=== PATIENT | male | born 1965 | race Caucasian/White ===

== ENCOUNTER 2018-05-08 13:08 | Outpatient (CLI) | payer OTHER, SELFPAY ==
--- NOTE | 2018-05-08 11:57 | DI.RAD_ITS ---
SYMPTOM/DIAGNOSIS: LT SIDED BACK PAIN, TOE NUMBNESS, M54.5 LUMBAR SPINE: The vertebral bodies are well maintained in height. There is mild narrowing of the L 5-S 1 disc space and small endplate osteophytes. No spondylolysis, spondylolisthesis or significant scoliosis is seen. There are mild degenerative changes of the facet joints. Gallstones are incidentally noted. The aorta shows calcification and is normal in diameter. IMPRESSION: Mild degenerative changes.
== END 2018-05-08 13:28 ==
PROVIDERS: PCP Family Medicine; Visit Provider Family Medicine
DX: M54.5 Low back pain (principal); R20.0 Anesthesia of skin; M47.817 Spondylosis without myelopathy or radiculopathy, lumbosacral region
CPT/HCPCS: 72110

== ENCOUNTER 2018-07-25 00:27 | Outpatient (CLI) | payer OTHER, SELFPAY ==
[2018-07-25 14:17] LABS: CREATININE 0.77 mg/dL (0.70-1.30)
[2018-07-25] MEDS: Gadoterate meglumine 20 ML VIAL 16 ML IVP (14:25)
--- NOTE | 2018-07-25 14:39 | DI.MRI_ITS ---
SYMPTOMS/DIAGNOSIS: LEFT LOW BACK PAIN, LEFT FOOT NUMBNESS, H/O LUMBAR DISCECTOMY IN 2004 MRI OF THE LUMBAR SPINE: Pre and post contrast examination was performed. There are no priors for comparison. The conus medullaris has a normal appearance and location. Following contrast administration, no significant abnormal enhancement is identified. At L5-S1, there is disc desiccation. There is a small right paracentral disc herniation with extrusion posterior to the S1 vertebral body. It does appear to mildly compress the right S1 nerve root. No significant central spinal canal or neural foraminal stenosis is seen at this level. At L4-L5, there is disc desiccation. There is a left lateral/neural foraminal disc herniation. It causes mild to moderate narrowing of the left foramen, mildly compressing the exiting nerve root. There are degenerative changes of the facets. Mild narrowing of the central spinal canal is noted. No significant right foraminal stenosis is seen. The remaining disc levels show no focal disc herniation, central spinal canal or neural foraminal stenosis. Marrow signal is within normal limits. IMPRESSION: 1. Left lateral/neural foraminal disc herniation at L4-L5 causing mild to moderate left neural foraminal stenosis with some apparent compression upon the exiting nerve root. 2. Small right paracentral disc herniation at L5-S1 with extrusion posterior to the S1 vertebral body with mild compression upon the right S1 nerve root.
== END 2018-07-25 00:47 ==
PROVIDERS: PCP Family Medicine; Visit Provider Nurse Practitioner Family
DX: M54.5 Low back pain (principal); M79.672 Pain in left foot; R20.0 Anesthesia of skin; M51.16 Intervertebral disc disorders with radiculopathy, lumbar region; M51.27 Other intervertebral disc displacement, lumbosacral region; Z98.890 Other specified postprocedural states; Z13.89 Encounter for screening for other disorder
CPT/HCPCS: 36415; 72158; 82565

== ENCOUNTER 2018-08-24 11:46 | Outpatient (CLI) | payer OTHER, SELFPAY ==
[2018-08-24 11:50] VITALS: BP 143/85; PULSE 69; RESP 16; TEMP 36.9; O2SAT 97
[2018-08-24] MEDS: methylPREDNISolone ACETATE 80 MG/ML VIAL IJ (12:06)
[2018-08-24] MEDS: Omnipaque 240 MG/ML 50 ML BTL IJ (12:07)
--- NOTE | 2018-08-24 12:14 | DI.RAD_ITS ---
SYMPTOMS/DIAGNOSIS: LUMBAR RADICULOPATHY, LUMBAR EPIDURAL STEROID INJECTION PAIN CLINIC: Fluoroscopy Time: 51.4 sec., 17.85 mGy Images submitted from the pain clinic demonstrate needle positioning over the sacrum and sacrococcygeal region in conjunction with an epidural steroid injection. Please see Dr. Barbour's procedure report for further information.
--- NOTE | 2018-08-24 12:17 | PDOC.PAIN ---
Pain Clinic Procedure Note Current Active Problems Problem Status Onset Lumbar radiculitis Acute CUADAL EPIDURAL STEROID WITH CATHETER INJECTION PROCEDURE NOTE COMMENTS: I did review the 08/02/18 evaluation by Ms. Scanlon and review his most recent lumbar spine MRI. He has had L5-S1 discetomy and this is the reason I chose the caudal approach to this procedure. SAMIA CRUZ has been referred to the [facility] for lumbar epidural steroid injection. Patient was greeted by the nurse who verified patients name and . Patient was then taken to the fluoroscopy suite. Patient was interviewed and the medical record reviewed. There were no medical, pharmacologic, radiographic, or other structural contraindications to attempting fluoroscopically guided lumbar epidural steroid injection. Risks and expected side effects as well as potential benefits of the procedure were reviewed and voiced concerns addressed. The patient consent form was signed and witnessed. Standard time-out procedure was performed. Patient was placed in the prone position on the fluoroscopy table and automated blood pressure cuff and pulse oximeter applied. The skin entry point for entering/approaching the epidural space at the sacral hiatus and marked. Following thorough chlorhexadine preparation of the skin and draping and 1% lidocaine infiltration of the skin entry point and subcutaneous tissues, a 17 gauge Touhy needle was placed under fluoroscopic guidance and with loss of resistance technique into the epidural space. Needle tip placement and depth were aided and confirmed by fluoroscopy. There was no paresthesia or return of blood or CSF through the needle. An Arrow cath was thread to the L5 verebral body and 1 cc's of Omnipaque 240 was injected with clear epidural spread confirmed with fluoroscopy. 80mg depomedrol was injected. There was not any unusual discomfort expressed. Vital signs were stable throughout the procedure and were as recorded in nursing records. Follow up plans and appointments were discussed.Post procedure instruction was given as documented in nursing records and having met discharge criteria and was discharged from the [facility]. COMMENTS: If this procedure is helpful, it can be completed up to 3 times per 12 months.
[2018-08-24 12:20] VITALS: BP 153/92; PULSE 79; RESP 18; O2SAT 100
== END 2018-08-25 12:45 | disposition home or self-care (01) ==
LOC: PC 11:47
PROVIDERS: PCP Family Medicine; Visit Provider Preventive Medicine Occupational Medicine
DX: M54.16 Radiculopathy, lumbar region (principal)
CPT/HCPCS: 62323; 72100; J1040; Q9967

== ENCOUNTER 2019-12-03 02:08 | Outpatient (CLI) | payer OTHER, SELFPAY ==
[2019-12-03 08:06] LABS: ALT 34 U/L (16-63); AST 18 U/L (15-37); Albumin 3.9 g/dL (3.4-5.0); Alkaline Phosphatase 44 U/L (46-116); Anion Gap 7.4 mmol/L (3-11); BUN 7 mg/dL (7-18); Bilirubin, Total 0.3 mg/dL (0.2-1.0); CO2 29.6 mmol/L (21.0-32.0); CREATININE 0.84 mg/dL (0.70-1.30); Calcium 8.9 mg/dL (8.5-10.1); Calculated LDL 126 mg/dL (<100); Chloride 102 mmol/L (98-107); Cholesterol 249 mg/dL (<200); Glucose 90 mg/dL (74-106); HDL Cholesterol 57 mg/dL (40-60); Potassium 4.6 mmol/L (3.5-5.1); Sodium 139 mmol/L (136-145); Total Protein 6.9 g/dL (6.4-8.2); Triglyceride 330 mg/dL (<150)
[2019-12-03 08:16] LABS: C-Reactive Protein < 0.05 mg/dL (0.0-0.3)
== END 2019-12-03 02:28 ==
PROVIDERS: PCP Family Medicine; Visit Provider Family Medicine
DX: I10 Essential (primary) hypertension (principal); M13.0 Polyarthritis, unspecified
CPT/HCPCS: 36415; 80053; 80061; 86140

== ENCOUNTER 2021-05-25 04:05 | Outpatient (CLI) | payer OTHER, SELFPAY ==
[2021-05-25 07:31] LABS: Abs Immature Grans 0.01 10^3/uL (0.0-0.06); Absolute Basophil Count 0.02 10^3/uL (0.0-0.2); Absolute Eosinophil Count 0.06 10^3/uL (0.0-0.7); Absolute Lymphocyte Count 1.86 10^3/uL (1.2-3.4); Absolute Monocyte Count 0.41 10^3/uL (0.1-0.8); Absolute Neutrophil Count 2.66 10^3/uL (1.2-6.7); Basophils % 0.4; Eosinophils % 1.2; HCT 46.4 % (40.0-50.0); HGB 15.8 g/dL (13.5-17.5); Immature Grans % 0.2; Lymphocytes % 37.1; MCH 34.6 pg (27.0-33.0); MCHC 34.1 % (32.0-36.0); MCV 101.5 fL (80-95); MPV 8.9 fL (8.0-11.0); Monocytes % 8.2; Neutrophils % 52.9; Nucleated RBC 0 %; Platelet Count 192 10^3/uL (130-400); RBC 4.57 10^6/uL (4.36-5.78); RDW 11.2 % (11.8-14.1); WBC 5.02 10^3/uL (4.4-10.8)
[2021-05-25 07:52] LABS: ESR < 1 mm/hr (0-20)
[2021-05-25 09:02] LABS: Calculated LDL 173 mg/dL (<100); Cholesterol 273 mg/dL (<200); HDL Cholesterol 68 mg/dL (40-60); TSH (W/Ref FT4) 3.79 uIU/mL (0.36-3.74); Triglyceride 164 mg/dL (<150)
[2021-05-25 09:18] LABS: C-Reactive Protein < 0.05 mg/dL (0.0-0.3); Creatine Kinase 62 U/L (39-308); FREE T4 0.93 ng/dL (0.76-1.46)
[2021-05-25 17:10] LABS: Rheumatoid Factor <8.6 IU/mL (<12.0)
[2021-05-25 17:54] LABS: PSA, Screening 1.6 ng/mL (0.0-3.5)
[2021-05-26 11:55] LABS: Lyme Ab w Rflx to Lyme Confirm Negative (Negative)
[2021-05-26 11:57] LABS: HIV-1/2 Ag & Ab Screen Negative (Negative)
[2021-05-26 12:12] LABS: Hepatitis C Ab w Rflx HCV PCR Negative (Negative)
== END 2021-05-25 04:06 | disposition home or self-care (01) ==
LOC: LBO 04:05
PROVIDERS: PCP Family Medicine; Visit Provider Family Medicine
DX: E78.5 Hyperlipidemia, unspecified (principal); R52 Pain, unspecified; Z11.59 Encounter for screening for other viral diseases; Z12.5 Encounter for screening for malignant neoplasm of prostate; I10 Essential (primary) hypertension; Z11.4 Encounter for screening for human immunodeficiency virus [HIV]
CPT/HCPCS: 36415; 80061; 82550; 84153; 85652; 86803; 87389; 84439; 84443; 85025; 86140; 86431; 86618

== ENCOUNTER 2021-06-10 01:23 | Outpatient (CLI) | payer OTHER, SELFPAY ==
--- NOTE | 2021-06-10 13:20 | DI.MRI_ITS ---
Exam(s) MR LUMBAR SPINE WO EXAM: MR LUMBAR SPINE WO CLINICAL HISTORY: low back pain, sciAtica on rightX 2 months? DISC BULGE LOWER LUMBAR.M54.40. TECHNIQUE: Multiplanar multisequence MRI of the Lumbar spine was performed. COMPARISON: MR MR lumbar spine wo/w from 07/25/2018 . There are no plain films available time this MRI interpretation. FINDINGS: Five lumbar vertebrae are presumed. Conus medullaris is at normal level. There is no evidence of conus mass nor subjacent clumping of in trathecal nerve roots to suggest arachnoiditis. The distal thecal sac is again noted to be at the S1 level..There is no evidence of Tarlov intrasacral cysts nor other significant findings within the sa cral canal Bones:There are no fractures nor ominous osseous lesions in the lumbar vertebral bodies and visualize d sacrum. 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 With respect to the individual levels... T12-L1: Unremarkable L1-2: Normal disc height and signal. No disc herniation nor central canal stenosis.No foraminal steno sis L2-3: Normal disc height. No disc herniation nor central canal stenosis.No foraminal stenosis.No face t arthropathy. L3-4: Normal disc height. No disc herniation or central canal stenosis.No foraminal stenosis.No face t arthropathy. L4-5: Normal disc height. There is broad symmetrical annular bulging at this level which is unchange d from the 2019 study, somewhat flattening the anterior aspect of the thecal sac. Minimal canal sten osis, unchanged. There is increased signal seen in the annulus bilaterally at the level of the exiti ng neural foramina but no prominent disc herniations. There is mild foraminal stenosis evident on th e left side due to the bulging annulus; this is unchanged from the 2019 study. No foraminal stenosis on the opposite-right side. L5-S1: This level exhibits relatively preserved disc height and signal. However, there is a posterol ateral right disc herniation at this level now evident which extends posteriorly 7 millimeters and is approximately 1.3 cm wide. This has further increased in size from the 2019 study. The disc protru gricel does not enter the exiting neural foramen. There is no foraminal stenosis on either side at thi s level. Also no significant facet arthropathy. Soft tissues: paraspinal soft tissues appear unremarkable. IMPRESSION: 1. Compared to the prior MRI scan of the June 2018 the size of the posterolateral right disc prot rusion at L5-S1 level has somewhat increased, as described above. This compresses nerve root in the right lateral recess, more so than previous. However, the disc herniation does not extend into exiti ng neural foramen. No significant facet arthropathy at this level. 2. Symmetrical annular bulging at L4-5 level as well as mild foraminal stenosis on the left side of L 4-5 level is unchanged from 2019 study. 3. Stable small benign intraosseous hemangioma again noted in the L4 vertebral body. DATA REPOSITORY:
== END 2021-06-10 01:43 ==
PROVIDERS: PCP Family Medicine; Visit Provider Family Medicine
DX: M54.41 Lumbago with sciatica, right side (principal); M51.27 Other intervertebral disc displacement, lumbosacral region; M48.07 Spinal stenosis, lumbosacral region
CPT/HCPCS: 72148

== ENCOUNTER 2021-07-04 11:48 | Emergency (ER) | payer OTHER, SELFPAY ==
[2021-07-04 11:55] VITALS: BP 178/90; PULSE 108; RESP 16; TEMP 36.7; O2SAT 98
[2021-07-04] MEDS: HYDROmorphone 2 MG/ML VIAL 1 MG IVP (13:14)
[2021-07-04] MEDS: Dexamethasone 4 MG/ML VIAL IVP (13:17)
[2021-07-04] MEDS: Orphenadrine 60 MG/2 ML VIAL IVP (13:19)
[2021-07-04 14:22] VITALS: BP 178/95; PULSE 90; RESP 16; TEMP 36.8; O2SAT 97
--- NOTE | 2021-07-04 14:23 | W.ED.GENAD ---
Discharge Plan Disposition Patient Disposition: HOME Condition: Stable Discharge Details Clinical Impression: Low back pain with sciatica Primary Care Provider: Alexis Abrams ED Provider: Blanca Eubanks Home Meds and New Rx's Prescriptions: New pregabalin [Lyrica] 75 mg capsule 75 mg PO BID Qty: 14 RF: 0 prednisone 10 mg tablet 10 mg PO DAILY Qty: 30 RF: 0 pregabalin [Lyrica] 75 mg capsule 75 mg PO BID Qty: 14 RF: 0 Continued ibuprofen [Advil] 200 mg tablet 400 mg PO BID RF: 0 amlodipine 5 mg tablet 5 mg PO DAILY Qty: 90 RF: 3 hydrocodone-acetaminophen 5-325 mg tablet See Rx Instructions PO Q6H MDD 8 PRN (Reason: pain) Qty: 56 RF: 0 lisinopril 30 mg tablet 30 mg PO DAILY Qty: 90 RF: 3 acetaminophen 500 mg Tablet 1,000 mg PO RF: 0 Discharge Instructions Instructions: Low Back Strain (ED) Additional Instructions: follow-up with pcp on Tuesday for reassessment Follow-up with [facility] at your scheduled appointment Use your walker with ambulation and return earlier should you have new or worsening complaints Referrals: Alexis Abrams MD [Primary Care Provider] - Discharge Data Discharge Date/Time-TO BE ENTERED AT DEPARTURE: 07/04/21 14:31 Medical Decision Making Patient appears symptomatically improved, he is ambulatory with steady gait There is no evidence of infectious etiology of symptoms, I did consider epidural abscess or discitis, however patient is presenting more with a sciatica presentation on my clinical assessment Placed on Lyrica We will continue on prescribed opiate analgesia Will follow up with PCP and present to [facility] at his scheduled appointment Neurovascularly intact at time of discharge home Return precautions discussed and patient expressed understanding Of note, patient's called approximately 5-6 times during this encounter and was quite demanding during the entirety of this assessment, patient was calm and appropriate and expressed thanks for his evaluation and assessment today Medical Records Medical records reviewed: Yes I reviewed the patient's medical records. Lab Data Lab results reviewed: Yes I reviewed the patient's lab results. HPI General Mode of arrival: ambulatory. Date/Time Provider Initiated Documentation: 07/04/21 12:19. Limitations to Documentation: no limitations. Information obtained by: patient. HPI Narrative: 56-year-old male presents with report of acute exacerbation of chronic back pain. He states that he is status post spinal injection of steroid on the . He was starting to have some mild improvement in symptoms when he was walking the dog down the stairs and fell a pop in his back and now has radiation down his right lower extremity with paresthesias to his right foot. He denies any changes in bowel or bladder. He denies any strength change to his extremities. He has been able to ambulate with pain only. This occurred yesterday. He denies any fever or chills. He denies history of IV drug abuse. He states he has been taking his Vicodin at home without relief in his pain. The new medicine for him. Denies any groin numbness. Related Data Home Medications Medication Instructions Recorded Confirmed ibuprofen 200 mg tablet 400 mg PO BID tab 04/06/18 07/04/21 lisinopril 30 mg tablet 30 mg PO DAILY #90 tab 05/25/21 07/04/21 amlodipine 5 mg tablet 5 mg PO DAILY #90 tab 06/30/21 07/04/21 hydrocodone 5 mg-acetaminophen 325 See Rx Instructions PO Q6H PRN #56 06/30/21 07/04/21 mg tablet tab MDD 8 acetaminophen 1,000 mg PO 07/04/21 prednisone 10 mg PO DAILY #30 tab 07/04/21 pregabalin [Lyrica] 75 mg PO BID #14 cap 07/04/21 pregabalin [Lyrica] 75 mg PO BID #14 cap 07/04/21 Previous Rx's Medication Instructions Recorded lisinopril 30 mg tablet 30 mg PO DAILY #90 tab 05/25/21 amlodipine 5 mg tablet 5 mg PO DAILY #90 tab 06/30/21 hydrocodone 5 mg-acetaminophen 325 See Rx Instructions PO Q6H PRN #56 06/30/21 mg tablet tab MDD 8 prednisone 10 mg PO DAILY #30 tab 07/04/21 pregabalin [Lyrica] 75 mg PO BID #14 cap 07/04/21 pregabalin [Lyrica] 75 mg PO BID #14 cap 07/04/21 Allergies Allergy/AdvReac Type Severity Reaction Status Date / Time No Known Allergies Allergy Verified 07/04/21 12:00 General Stated Complaint: Nk/Back Pain FLAVIA: 3 Review of Systems All systems reviewed & are unremarkable except as noted in HPI and below PFSH All Active Problems Pain management (Acute) 06/2021-pain management per [facility] with drug contract, V PMS reviewed, drug screen Low back pain with sciatica (Acute) 04/2021, right 2004 discectomy, l5-S1 Essential hypertension (Acute) Personal history of nicotine dependence (Acute) 03/2021-cigar smoker-1 cigar a day Hyperlipidemia (Acute) Carpal tunnel syndrome of left wrist (Acute) Excessive drinking alcohol (Chronic) 03/2021-3-4 drinks a day Medical History Blood in stool Surgical History Colonoscopy - MAC (01/28/17) S/P diskectomy L5-S1 : 11/27/04 Family History Father Alcohol abuse Mother , 76 Cancer Sister No problems noted. Sister No problems noted. Maternal Grandmother , 93 Diabetes Social History Smoking/Tobacco Use Status: Current-Occasional Tobacco Type: cigars Tobacco: How many years used: 6 Quit status: considering quitting Second Hand Exposure: Yes Smoking risk assessment performed?: Yes Alcohol Intake: current Alcohol Intake frequency: a few times a week Alcohol type: beer Drug use: Never Substance use type: does not use Caregiver/Support person: No Household members: spouse Housing: house Number of Children: 1 Communication Needs: None and Corrective Lenses Do you need help understanding health information?: Often current occupation: [employer] Pets and animals: Yes Pets and animals: dog(s) Sexually active: No Do you think of yourself as: straight/heterosexual Current gender identity: male What is your relationship status?: How often do you talk on the phone with friends or family?: once per week How often do you get together with friends or relatives?: decline to answer How often do you attend restorationist or druze services?: decline to answer Do you belong to any clubs or organized social groups?: no Panel score (0-1 are the most socially isolated patients): 1 What type of physical activity do you participate in: walking Duration: 15-30 minutes/day Frequency: 5-6 times per week Mimi/Holiness: No preference Special mimi needs: No Seatbelt use: always Drive intox or ride w/intox yard driver: No Working smoke detector in home: Yes Fire extinguisher in home: Yes Carbon monox detector in home: Yes Do you feel safe at home: Yes Do you feel safe in your relationship?: Yes Exam Const General: cooperative, comfortable and no acute distress Eyes Pupils: PERRL Resp Effort & Inspection: normal respiratory effort Auscultation: clear to auscultation bilaterally Cardio Rate: regular rate Rhythm: regular rhythm GI Other: No abdominal bruit or pulsatile mass Back/Spine/Pelvis Other: Tenderness with palpation over the paraspinal muscles and sciatic notch Skin General skin exam: no rashes or lesions noted Neuro General: patient alert and patient oriented x3 Other: Positive straight leg raise on the right, neurovascularly intact Strength and sensation intact distally, DTRs intact bilateral lower extremities Extrem Other: Distal pulses intact Course Vital Signs Vital signs: Vital Signs Temperature 36.7 C 07/04/21 11:55 Pulse 108 H 07/04/21 11:55 Respiratory Rate 16 07/04/21 11:55 Blood Pressure 178/90 H 07/04/21 11:55 Pulse Oximetry 98 07/04/21 11:55 Temperature 36.7 C 07/04/21 11:55 Pulse 108 H 07/04/21 11:55 Respiratory Rate 16 07/04/21 11:55 Blood Pressure 178/90 H 07/04/21 11:55 Blood Pressure Position Supine 07/04/21 11:55 Pulse Oximetry 98 07/04/21 11:55 Oxygen Delivery Method Room Air 07/04/21 11:55 Oxygen Flow Rate 0 07/04/21 11:55 Pain Level 9 07/04/21 13:17 PAWSS Have you Been Recently Intoxicated or Drunk Within the Last 30 days?: No Have you Ever Experienced Previous Episodes of Alcohol Withdrawal?: No Have you ever Experienced Withdrawal Seizures?: No Have you ever Experienced Delirium Tremens(DT)s?: No Have you ever undergone Alcohol Rehabilitation Treatment (i.e, inpt ot outpatient treatment programs)?: No Have you ever Experienced Blackouts?: No Have you ever Combined Alcohol with other Downers within the last 90 days?: No Have you ever Combined Alcohol with any other Substance of Abuse during the last 90 days?: No Positive Blood Alcohol level on Presentation? [PCS.BAL]: No Result: 0
== END 2021-07-04 14:31 | disposition home or self-care (01) ==
PROVIDERS: Emergency Provider Physician Assistant; PCP Family Medicine
DX: M54.41 Lumbago with sciatica, right side (principal); G89.29 Other chronic pain
CPT/HCPCS: 96365; 96375; 99284; J2360; 99283; J0131; J1100

== ENCOUNTER 2021-10-13 02:04 | Outpatient (CLI) | payer OTHER, SELFPAY ==
[2021-10-13 07:27] LABS: HCT 43.4 % (40.0-50.0); HGB 14.8 g/dL (13.5-17.5); MCH 35.3 pg (27.0-33.0); MCHC 34.1 % (32.0-36.0); MCV 104 fL (80-95); MPV 8.8 fL (8.0-11.0); Platelet Count 188 10^3/uL (130-400); RBC 4.19 10^6/uL (4.36-5.78); RDW 10.9 % (11.8-14.1); RDW-SD 41.9 fL; WBC 5.17 10^3/uL (4.4-10.8)
[2021-10-13 09:08] LABS: ALT 24 U/L (16-63); AST 17 U/L (15-37); Albumin 3.8 g/dL (3.4-5.0); Alkaline Phosphatase 54 U/L (46-116); BUN 9 mg/dL (7-18); Bilirubin, Total 0.4 mg/dL (0.2-1.0); CREATININE 0.7 mg/dL (0.70-1.30); Calcium 8.5 mg/dL (8.5-10.1); Calculated LDL 146 mg/dL (<100); Chloride 105 mmol/L (98-107); Cholesterol 229 mg/dL (<200); Glucose 88 mg/dL (74-106); HDL Cholesterol 63 mg/dL (40-60); Potassium 4.7 mmol/L (3.5-5.1); Sodium 141 mmol/L (136-145); TSH (W/Ref FT4) 3.44 uIU/mL (0.36-3.74); Total Protein 6.3 g/dL (6.4-8.2); Triglyceride 104 mg/dL (<150)
== END 2021-10-13 02:05 | disposition home or self-care (01) ==
LOC: LBO 02:04
PROVIDERS: PCP Family Medicine; Visit Provider Family Medicine
DX: E78.5 Hyperlipidemia, unspecified (principal); I10 Essential (primary) hypertension; R79.89 Other specified abnormal findings of blood chemistry
CPT/HCPCS: 36415; 80053; 80061; 85027; 84443

== ENCOUNTER 2022-02-07 10:42 | Emergency (ER) | payer OTHER, SELFPAY ==
[2022-02-07 10:45] VITALS: BP 180/99; PULSE 99; RESP 16; TEMP 35.9; O2SAT 99
--- NOTE | 2022-02-07 10:54 | W.ED.GENAD ---
Discharge Plan Disposition Patient Disposition: HOME Condition: Stable Discharge Details Clinical Impression: Arm pain, left Primary Care Provider: Surinder Craig ED Provider: Yovanny Smalls Home Meds and New Rx's Prescriptions: New cyclobenzaprine 5 mg tablet 5 mg PO TID PRNQty: 10 0RF Continued ibuprofen [Advil] 200 mg tablet 400 - 600,600 mg PO BID amlodipine 5 mg tablet 5 mg PO DAILY Qty: 90 3RF gabapentin 300 mg capsule See Rx Instructions PO DAILY Qty: 1 0RF Rx Instructions: orally daily; one tab in am, one at lunch , 2 tabs a bedtime [facility] [place] [facility] lisinopril 30 mg tablet 30 mg PO DAILY Qty: 90 3RF acetaminophen 500 mg Tablet 1,000 mg PO PRN PRN Discharge Instructions Instructions: Musculoskeletal Pain (ED) Additional Instructions: Faol-kab-yolvnik Tylenol and/or Motrin as directed for discomfort. Wear sling as needed, advance activity as tolerated, be sure to do passive range of motion at least 4 times daily to avoid a frozen shoulder. Flexeril as directed, this medication may cause drowsiness. Please watch for new or worsening symptoms and return to the ER for any concerns. Lastly, I have given you the name and number of our orthopedic team, Dr. Ellis, please contact his office tomorrow to discuss your ongoing symptoms and need for outpatient reevaluation Referrals: Ranjeet Ellis MD [ [facility]] - Discharge Data Discharge Date/Time-TO BE ENTERED AT DEPARTURE: 02/07/22 11:42 Medical Decision Making This is a 56-year-old gentleman, [id number], presenting to the ER for evaluation of left arm pain worse over the past 2 weeks. Past medical history includes chronic low back pain, hypertension, history of alcohol abuse. Patient denies any obvious injury. Reports the pain began in his left elbow, he used vnzo-vjr-ftvjapt patches, tried the tennis elbow band and occasionally yhre-dyp-guxurwn Motrin with little relief. He feels as though he was favoring his left arm and then began having shoulder soreness, tightness, stiffness, worse with movement. He states that movement or positioning makes his discomfort much worse. Denies any obvious trauma but does report repetitive motion. He denies any posterior neck pain, numbness, tingling, weakness, fever, chest pain or shortness of breath. Clinically he appears well, nontoxic. Examination is consistent with musculoskeletal discomfort. Pain is reproducible with palpation and movement. Neuro, vascular, tendon intact. Given the tightness of his left shoulder blade, difficulty finding a comfortable position, I will provide a prescription of Flexeril. Recommend more aggressive bimq-zcl-ewmfgqz anti-inflammatory and Tylenol therapy. We will also provide a sling as he states movement typically makes his symptoms worse. There is no numbness, tingling, weakness, no radicular symptoms. We will provide a single dose of IM Toradol now and provide a referral to orthopedics. Given there was no trauma, no evidence of radicular symptoms, x-ray likely of little value. Strict discharge and return precautions were provided. Patient understands, is agreeable to this plan, and has no additional questions or concerns upon discharge. This documentation was generated using [employer] dictation system, please disregard any oddities of phrase or misspellings. Medical Records Medical records reviewed: Yes I reviewed the patient's medical records. HPI General Mode of arrival: ambulatory. Date/Time Provider Initiated Documentation: 02/07/22 10:51. Limitations to Documentation: no limitations. Information obtained by: patient. History of Present Illness 56 year old M presents to the emergency department with the chief complaint of L shoulder/elbow pain, described as moderate, with intensity rated at 7. Quality is described as aching, and is localized to the left and upper extremity. Patient reports no radiation. Patient started experiencing this week(s) (2) and it has been constant. Immobilization improves symptom(s), Movement worsens symptoms (and certian positions) . Patient notes denies chest pain, fever/chills, headaches, nausea/vomiting and shortness of breath. Patient did receive the following treatments prior to arrival, NSAID Related Data Home Medications Medication Instructions Recorded Confirmed ibuprofen 200 mg tablet (Advil) 400 - 600,600 mg PO BID 04/06/18 02/07/22 lisinopril 30 mg tablet 30 mg PO DAILY #90 tabs 05/25/21 02/07/22 acetaminophen 500 mg tablet 1,000 mg PO PRN PRN 07/04/21 02/07/22 amlodipine 5 mg tablet 5 mg PO DAILY #90 tabs 08/04/21 02/07/22 gabapentin 300 mg capsule See Rx Instructions PO DAILY #1 cap 10/27/21 02/07/22 cyclobenzaprine 5 mg tablet 5 mg PO TID PRN #10 tabs 02/07/22 Previous Rx's Medication Instructions Recorded lisinopril 30 mg tablet 30 mg PO DAILY #90 tabs 05/25/21 amlodipine 5 mg tablet 5 mg PO DAILY #90 tabs 08/04/21 gabapentin 300 mg capsule See Rx Instructions PO DAILY #1 cap 10/27/21 cyclobenzaprine 5 mg tablet 5 mg PO TID PRN #10 tabs 02/07/22 Allergies Allergy/AdvReac Type Severity Reaction Status Date / Time No Known Allergies Allergy Verified 02/07/22 10:49 General Stated Complaint: Orthopedic FLAVIA: 4 Review of Systems Constitutional Constitutional: Denies fever(s) and Denies weakness ENT Ears, Nose, Mouth, and Throat: Reports neck pain (L sided) Cardiovascular Cardiovascular: Denies chest pain and Denies dyspnea Respiratory Respiratory: Denies cough and Denies dyspnea Musculoskeletal Musculoskeletal: Reports back pain, Reports neck pain (L sided), Denies numbness and Denies tingling Integumentary/Breasts Skin/Breast: Denies erythema Neurologic Neurologic: Denies numbness, Denies tingling and Denies weakness PFSH All Active Problems Arm pain, left (Acute) Edema (Acute) Pain management (Acute) 06/2021-pain management per [facility] medical with drug contract, V PMS reviewed, drug screen Low back pain with sciatica (Acute) 04/2021, right 2004 discectomy, l5-S1 06/2021-L5-S1, microdiscectomy low back surgery at [facility] Essential hypertension (Acute) Personal history of nicotine dependence (Acute) 03/2021-cigar smoker-1 cigar a day Hyperlipidemia (Acute) Carpal tunnel syndrome of left wrist (Acute) Excessive drinking alcohol (Chronic) 03/2021-3-4 drinks a day Medical History Blood in stool Chronic pain Surgical History Colonoscopy - MAC (01/28/17) S/P diskectomy L5-S1 : 11/27/04 and 06/2021 Family History Father Alcohol abuse Mother , 76 Cancer Sister No problems noted. Sister No problems noted. Maternal Grandmother , 93 Diabetes Social History Smoking/Tobacco Use Status: Current-Occasional Tobacco Type: cigars Tobacco: How many years used: 6 Quit status: considering quitting Second Hand Exposure: Yes Smoking risk assessment performed?: Yes Alcohol Intake: current Alcohol Intake frequency: a few times a week Alcohol type: beer Drug use: Never Substance use type: does not use Caregiver/Support person: No Household members: spouse Housing: house Number of Children: 1 Communication Needs: None and Corrective Lenses Do you need help understanding health information?: Often current occupation: [employer] Pets and animals: Yes Pets and animals: dog(s) Sexually active: No Do you think of yourself as: straight/heterosexual Current gender identity: male What is your relationship status?: How often do you talk on the phone with friends or family?: once per week How often do you get together with friends or relatives?: decline to answer How often do you attend presybeterian or restorationism services?: decline to answer Do you belong to any clubs or organized social groups?: no Panel score (0-1 are the most socially isolated patients): 1 What type of physical activity do you participate in: walking Duration: 15-30 minutes/day Frequency: 5-6 times per week Mimi/Anabaptist: No preference Special mimi needs: No Seatbelt use: always Drive intox or ride 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: No Working smoke detector in home: Yes Fire extinguisher in home: Yes Carbon monox detector in home: Yes Do you feel safe at home: Yes Do you feel safe in your relationship?: Yes Exam Const General: cooperative, healthy appearing, comfortable and no acute distress Orientation: alert and awake [facility] Head: normal to inspection, normocephalic and atraumatic Face and sinus: normal facial exam Mouth: moist mucous membranes Eyes Conjunctivae: conjunctivae normal Neck Neck: normal visual inspection, full ROM, no meningeal signs, trachea midline, supple and nontender Chest Chest: normal inspection of the chest and normal palpation of entire chest wall Resp Effort & Inspection: normal respiratory effort and able to speak in complete sentences Auscultation: clear to auscultation bilaterally Cardio Rate: regular rate Rhythm: regular rhythm GI Palpation: soft, not firm, no guarding, no pulsatile masses and nontender Back/Spine/Pelvis Back: no CVA tenderness and back tenderness Back/spine/pelvis image: 1. Diffuse soft tissue tenderness. Skin General skin exam: no rashes or lesions noted Neuro General: patient alert, patient awake, moves all extremities and no focal motor deficits Cognition: normal cognition Speech: speech normal Gait: normal gait Motor: muscle tone normal throughout Sensory Exam: no sensory deficits noted Extrem General: normal to inspection, full ROM and capillary refill normal Shoulder/upper arm images: 1. Tenderness to palpation 2. Tenderness to palpation. Discomfort worse in the left shoulder with movement especially greater than 90 degrees. Psych Appearance: grossly normal Mental Status: mental status grossly normal Course Vital Signs Vital signs: Vital Signs Temperature 35.9 C L 02/07/22 10:45 Pulse 99 H 02/07/22 10:45 Respiratory Rate 16 02/07/22 10:45 Blood Pressure 180/99 H 02/07/22 10:45 Pulse Oximetry 99 02/07/22 10:45 Temperature 35.9 C L 02/07/22 10:45 Temperature Source Tympanic 02/07/22 10:45 Pulse 99 H 02/07/22 10:45 Respiratory Rate 16 02/07/22 10:45 Respiratory Effort 02/07/22 10:51 Blood Pressure 180/99 H 02/07/22 10:45 Blood Pressure Position Sitting 02/07/22 10:45 Pulse Oximetry 99 02/07/22 10:45 Oxygen Delivery Method Room Air 02/07/22 10:45 Oxygen Flow Rate 0 02/07/22 10:45 Pain Level 7 02/07/22 10:45 Comment ice and pain patch 02/07/22 10:45 PAWSS Have you Been Recently Intoxicated or Drunk Within the Last 30 days?: No Have you Ever Experienced Previous Episodes of Alcohol Withdrawal?: No Have you ever Experienced Withdrawal Seizures?: No Have you ever Experienced Delirium Tremens(DT)s?: No Have you ever undergone Alcohol Rehabilitation Treatment (i.e, inpt ot outpatient treatment programs)?: No Have you ever Experienced Blackouts?: No Have you ever Combined Alcohol with other Downers within the last 90 days?: No Have you ever Combined Alcohol with any other Substance of Abuse during the last 90 days?: No Positive Blood Alcohol level on Presentation? [PCS.BAL]: No Evidence of Increased Autonomic Activity (i.e. HR>120, tremor, sweating, agitation, nausea)?: No Result: 0
[2022-02-07] MEDS: Ketorolac 60 MG/2 ML VIAL IM (11:15)
[2022-02-07 11:21] VITALS: BP 151/99; PULSE 84; O2SAT 100
--- NOTE | 2022-02-08 16:18 | NUR.NOTE ---
Nursing Note: Accessed pt chart to get information for referral to ortho.
== END 2022-02-07 11:42 | disposition home or self-care (01) ==
PROVIDERS: Emergency Provider Physician Assistant; PCP Nurse Practitioner Family
DX: M79.602 Pain in left arm (principal); I10 Essential (primary) hypertension; F17.290 Nicotine dependence, other tobacco product, uncomplicated
CPT/HCPCS: 96372; 99284; J1885

== ENCOUNTER 2022-03-10 15:15 | Outpatient (CLI) | payer OTHER, SELFPAY ==
--- NOTE | 2022-03-10 14:00 | DI.RAD_ITS ---
Exam(s) XR ELBOW LT COMPLETE EXAM: XR ELBOW LT COMPLETE CLINICAL HISTORY: L elbow pain TECHNIQUE: COMPARISON: No exams were available for comparison FINDINGS: Three views were obtained. There is no evidence of an elbow joint effusion or hemarthrosis. No bony or soft tissue abnormality seen. IMPRESSION: RADIATION DOSE DELIVERED: Total DLP
== END 2022-03-10 15:16 | disposition home or self-care (01) ==
LOC: DIORS 15:15
PROVIDERS: PCP Nurse Practitioner Family; Referring Provider Nurse Practitioner Family; Visit Provider Physician Assistant
DX: M25.522 Pain in left elbow (principal)
CPT/HCPCS: 73080

== ENCOUNTER 2023-01-06 02:36 | Outpatient (CLI) | payer OTHER, SELFPAY ==
[2023-01-06 09:25] LABS: ALT 30 U/L (16-63); AST 23 U/L (15-37); Alkaline Phosphatase 49 U/L (46-116); Anion Gap 6.5 mmol/L (3-11); BUN 8 mg/dL (7-18); Bilirubin, Total 0.5 mg/dL (0.2-1.0); CO2 30.5 mmol/L (21.0-32.0); CREATININE 0.8 mg/dL (0.70-1.30); Calculated LDL 137 mg/dL (<100); Chloride 100 mmol/L (98-107); Cholesterol 217 mg/dL (<200); Estimated GFR 103.87 (mL/min/1.73m2); Glucose 100 mg/dL (74-106); HDL Cholesterol 66 mg/dL (40-60); Potassium 4.6 mmol/L (3.5-5.1); Sodium 137 mmol/L (136-145); Total Protein 7.1 g/dL (6.4-8.2); Triglyceride 74 mg/dL (<150)
== END 2023-01-06 02:37 | disposition home or self-care (01) ==
LOC: LBO 02:36
PROVIDERS: Family Medicine; PCP Nurse Practitioner Family; Visit Provider Nurse Practitioner Family
DX: I10 Essential (primary) hypertension (principal); E78.5 Hyperlipidemia, unspecified; Z12.5 Encounter for screening for malignant neoplasm of prostate
CPT/HCPCS: 36415; 80053; 80061; 84153

== ENCOUNTER 2024-02-06 01:57 | Outpatient (CLI) | payer OTHER, SELFPAY ==
[2024-02-06 12:41] LABS: Hemoglobin A1C 5.2 % (<5.7)
[2024-02-06 12:50] LABS: CREATININE 0.8 mg/dL (0.70-1.30); Calculated LDL 74 mg/dL (<100); Cholesterol 187 mg/dL (<200); Estimated GFR 103.22 (mL/min/1.73m2); HDL Cholesterol 78 mg/dL (40-60); Potassium 3.5 mmol/L (3.5-5.1); Triglyceride 176 mg/dL (<150)
[2024-02-06 18:16] LABS: PSA, Screening 1.1 ng/mL (<=3.5)
== END 2024-02-06 01:58 | disposition home or self-care (01) ==
LOC: LOS 01:57
PROVIDERS: PCP Nurse Practitioner Family; Visit Provider Nurse Practitioner Family
DX: Z13.1 Encounter for screening for diabetes mellitus (principal); Z13.220 Encounter for screening for lipoid disorders; Z12.5 Encounter for screening for malignant neoplasm of prostate; I10 Essential (primary) hypertension
CPT/HCPCS: 36415; 80061; 84153; 82565; 83036; 84132

== ENCOUNTER 2025-02-06 04:33 | Outpatient (CLI) | payer OTHER, SELFPAY ==
[2025-02-06 14:35] LABS: Hemoglobin A1C 5.2 % (<5.7)
[2025-02-06 14:37] LABS: Anion Gap 4.8 mmol/L (3-11); BUN 7 mg/dL (7-18); CO2 32.2 mmol/L (21.0-32.0); Calcium 9.1 mg/dL (8.5-10.1); Calculated LDL 75 mg/dL (<100); Chloride 101 mmol/L (98-107); Cholesterol 170 mg/dL (<200); Estimated GFR 106.80 (mL/min/1.73m2); Glucose 89 mg/dL (74-106); HDL Cholesterol 67 mg/dL (>or=40); Potassium 4.0 mmol/L (3.5-5.1); Sodium 138 mmol/L (136-145); Triglyceride 143 mg/dL (<150)
== END 2025-02-06 04:34 | disposition home or self-care (01) ==
LOC: LOS 04:33
PROVIDERS: PCP Nurse Practitioner Family; Visit Provider Nurse Practitioner Family
DX: Z13.1 Encounter for screening for diabetes mellitus (principal); I10 Essential (primary) hypertension; Z13.220 Encounter for screening for lipoid disorders
CPT/HCPCS: 36415; 80048; 80061; 83036

== ENCOUNTER 2025-04-08 11:06 | Observation (INO) | payer OTHER, SELFPAY ==
[2025-04-08] VITALS (25 sets, daily range): BP systolic 127–188; BP diastolic 85–99; PULSE 67–92; RESP 13–25; TEMP 36.8–37.1; O2SAT 97–100
--- NOTE | 2025-04-08 11:00 | RT.EKG_ITS ---
APPROVED REPORT Exam: Resting ECG Reason for Exam: Palpatations Patient Location: E HR:91 bpm ECG Measurements Heart Rate 91 AXIS [place] 153 P 58 QRSd 95 QRS 20 QT 338 T 20 QTc 416 Conclusion Sinus rhythm...normal P axis, V-rate 60- 99
--- NOTE | 2025-04-08 11:30 | DI.RAD_ITS ---
Exam(s) XR CHEST 2V PA LATERAL EXAM: XR CHEST 2V PA LATERAL CLINICAL HISTORY: syncope. TECHNIQUE: 2D digital imaging was performed. COMPARISON: No exams were available for comparison FINDINGS: 2 views: Heart size is normal. The mediastinum is not widened. Lungs are clear. No infiltrates nor pleural effusions. IMPRESSION: No acute pulmonary findings. DATA REPOSITORY: RADIATION DOSE DELIVERED:
--- NOTE | 2025-04-08 11:34 | ED.GENADUL_ITS ---
Discharge Plan Disposition Patient Disposition: Home Condition: Stable Discharge Details Clinical Impression: Syncope, Palpitations Primary Care Provider: Surinder Craig ED Provider: Donis Kuo Home Meds and New Rx's Prescriptions: No Action ibuprofen [Advil] 200 mg tablet 400 - 600,600 mg PO BID amlodipine 5 mg tablet 5 mg PO DAILY Qty: 90 3RF lisinopril 40 mg tablet 40 mg PO DAILY Qty: 90 3RF simvastatin 10 mg tablet 10 mg PO DAILY Qty: 90 3RF acetaminophen 500 mg Tablet 1,000 mg PO PRN PRN Discharge Instructions Stand Alone Forms: Portal Information HPI General Date/Time Provider Initiated Documentation: 04/08/25 11:24 . HPI Narrative: 60 year-old male presents to ED today by POV/ambulating with a chief complaint of syncopal episode at work, with severe palpitations just prior, and dizziness and sweating persisting afterwards with onset around 0700 this morning. Quality described as chest discomfort, fluttering in his chest, and tunnel vision, no radiation to cough, fever, crushing chest pain, nausea/vomiting. Severity is described as severe. Palliating factors include nothing specific attempted. Provoking factors include nothing specific. Events leading up to the incident/Associated Symptoms: Patient denies cardiac history. Patient not anticoagulated. Related Data Home Medications Medication Instructions Recorded Confirmed ibuprofen 200 mg tablet (Advil) 400 - 600,600 mg PO BI D 04/06/18 04/08/25 acetaminophen 500 mg tablet 1,000 mg PO PRN PRN 04/08/25 amlodipine 5 mg tablet 5 mg PO DAILY #90 tabs 01/1704/08/25 lisinopril 40 mg tablet 40 mg PO DAILY #90 tabs 12/2904/08/25 simvastatin 10 mg tablet 10 mg PO DAILY #90 tabs 12/2904/08/25 Previous Rx's Medication Instructions Recorded amlodipine 5 mg tablet 5 mg PO DAILY #90 tabs 01/17 lisinopril 40 mg tablet 40 mg PO DAILY #90 tabs 12/29 06/23 simvastatin 10 mg tablet 10 mg PO DAILY #90 tabs 12/29 06/23 Allergies Allergy/AdvReac Type Severity Reaction Status Date / Time No Known Allergies Allergy Verified 04/08/25 11:25 General Stated Complaint: Palpitatns FLAVIA: 3 Review of Systems All systems reviewed & are unremarkable except as noted in HPI and below Exam Narrative Exam Narrative: GENERAL APPEARANCE: Well-nourished, non-toxic, awake and alert, atraumatic, mild acute distress. SKIN: Warm, pink, dry, intact, without rashes/lesions/ulcerations. HEAD: Normocephalic, atraumatic, normal hair distribution for gender/age. EYES: Normal conjunctiva, no exudates on lids/lashes. ENT: Nares patent, no circumoral cyanosis, no facial swelling NECK: Supple, trachea midline, painless cervical ROM. LUNGS/CHEST: Lungs CTA bilaterally-no rhonchi/rales/wheeze diffusely, non- labored respirations, normal A/P diameter, symmetrical expansion, no chest wall deformity HEART (CV/PV): Regular rate and rhythm without murmur, no peripheral edema, no JVD. ABDOMEN: Soft, non-distended, no guarding, no tenderness. MSK: Normal ROM, no swelling/deformity to bilateral UEs or LEs, moving all extremities without weakness, no cyanosis, spine midline without tenderness, normal curvature. NEURO: Mental Status AAOx4 - alert to person, place, time, events No facial droop, no forehead involvement. Motor: No focal weakness - strength 5/5 in bilateral UEs and LEs, proximal and distal, symmetric. Sensory: sensation intact to light touch globally. Gait normal: patient ambulated without ataxia into ED room. PSYCH: euthymic, cooperative, pleasant, appropriate speech Course Vital Signs Vital signs: Vital Signs Temperature 36.8 C 04/08/25 11:08 Pulse 91 H 04/08/25 11:08 Respiratory Rate 18 04/08/25 11:08 Blood Pressure 171/94 H 04/08/25 11:08 Pulse Oximetry 98 04/08/25 11:08 Temperature 36.8 C 04/08/25 11:08 Temperature Source Oral 04/08/25 11:08 Pulse 91 H 04/08/25 11:08 Respiratory Rate 18 04/08/25 11:08 Blood Pressure 171/94 H 04/08/25 11:08 Blood Pressure Position Sitting 04/08/25 11:08 Pulse Oximetry 98 04/08/25 11:08 Oxygen Delivery Method Room Air 04/08/25 11:08 Oxygen Flow Rate 0 04/08/25 11:08 Medical Decision Making This dictation utilizes [id number] dictation software and may contain unedited grammatical errors. 60 year-old male presents to ED today by POV/ambulating with a chief complaint of syncopal episode at work, with severe palpitations just prior, and dizziness and sweating persisting afterwards with onset around 0700 this morning. Quality described as chest discomfort, fluttering in his chest, and tunnel vision, no radiation to cough, fever, crushing chest pain, nausea/vomiting. Severity is described as severe. Palliating factors include nothing specific attempted. Provoking factors include nothing specific. Events leading up to the incident/Associated Symptoms: Patient denies cardiac history. Patients' medical history: Edema, hypertension, hyperlipidemia. Family and social history: Noncontributory. Pertinent exam findings / vital signs include benign cardiopulmonary exam, neuro intact, benign abdomen. Differential / pathologies of concern include cardiac syncope, arrhythmia, vasovagal syncope, ACS. Diagnostic studies of: - CBC, CMP, magnesium, troponin, lipase, EKG, XR chest. - CBC is unremarkable - CMP is unremarkable - Serial troponins negative - Lipase within normal limits - Magnesium within normal limits - X-ray chest benign - EKG shows sinus rhythm at 91 bpm with no acute abnormalities, no T wave abnormalities, normal axis, no diffuse ST depression, question submillimeter depression in the lateral leads Interventions of: - 324 mg aspirin chewable. - Consulted with hospitalist Dr. Braun for admission for suspicious cardiac syncope which was excepted at 1450, echocardiogram possibly has availability at the end of the day though we would need to reconsult with them, unsure of stress test availability today ED Course/Assessment/Plan: 60-year-old male had significant palpitations followed by syncopal event with persistent dizziness and shortness of breath and sweating afterwards this morning around 0700, he still is mildly dizzy, he denies personal cardiac history but says he has been dealing with palpitations for some time, his cardiac workup is negative his EKG is within normal limits but due to the nature of his symptoms and his risk factors of hypertension hyperlipidemia I find it prudent to place him in observation and try to get some baseline cardiac studies done which was accepted by hospitalist, experience no acute chest pain throughout visit today. Disposition of Syncope, Palpitations. Patient verbalized understanding of the plan and return to ED criteria and engaged in shared decision making. Medical Records Medical records reviewed: Yes I reviewed the patient's medical records. Imaging Data Radiologic Study: Attestation: I personally reviewed and interpreted this imaging study as follows: Imaging: X-Ray Radiologist's impression: EXAM: XR CHEST 2V PA LATERAL CLINICAL HISTORY: syncope. TECHNIQUE: 2D digital imaging was performed. COMPARISON: No exams were available for comparison FINDINGS: 2 views: Heart size is normal. The mediastinum is not widened. Lungs are clear. No infiltrates nor pleural effusions. IMPRESSION: No acute pulmonary findings. Lab Data Lab results reviewed: Yes I reviewed the patient's lab results. Labs: Laboratory Tests Range/Units 04/08/25 04/08/25 11:41 12:20 WBC (4.4-10.8) 10^3/uL 5.42 RBC (4.36-5.78) 10^6/uL 4.15 L Hgb (13.5-17.5) g/dL 14.1 Hct (40.0-50.0) % 40.2 MCV (80-95) fL 97 H MCH (27.0-33.0) pg 34.0 H MCHC (32.0-36.0) % 35.1 RDW (11.8-14.1) % 11.4 L Plt Count (130-400) 10^3/uL 221 MPV (8.0-11.0) fL 8.4 Immature Gran % % 0.2 Neutrophils % % 51.4 Lymphocytes % % 38.9 Monocytes % % 7.6 Eosinophils % % 1.3 Basophils % % 0.6 Nucleated RBC % (0.0-0.3) % 0.0 Absolute Neutrophils (1.2-6.7) 10^3/uL 2.79 Absolute Lymphocytes (1.2-3.4) 10^3/uL 2.11 Absolute Monocytes (0.1-0.8) 10^3/uL 0.41 Absolute Eosinophils (0.0-0.7) 10^3/uL 0.07 Absolute Basophils (0.0-0.2) 10^3/uL 0.03 Sodium (136-145) mmol/L 137 Potassium (3.5-5.1) mmol/L 3.9 Chloride (98-107) mmol/L 100 Carbon Dioxide (21.0-32.0) mmol/L 27.9 Anion Gap (3-11) mmol/L 9.1 BUN (7-18) mg/dL 8 Creatinine (0.70-1.30) mg/dL 0.7 Est GFR (CKD-EPI 2020) (mL/min/1.73m2) 106.14 Glucose (74-106) mg/dL 94 Calcium (8.5-10.1) mg/dL 9.0 Magnesium (1.8-2.4) mg/dL 2.0 Total Bilirubin (0.2-1.0) mg/dL 0.4 AST (15-37) U/L 22 ALT (16-63) U/L 48 Alkaline Phosphatase (46-116) U/L 51 Troponin I (<or=76) ng/L < 4 4 Total Protein (6.4-8.2) g/dL 7.5 Albumin (3.4-5.0) g/dL 4.1 Lipase (<78) U/L 38 PFSH All Active Problems Palpitations (Acute) Syncope (Chronic) Numbness of right foot (Acute) Lateral epicondylitis, left elbow (Acute) Steroid Injection: 03/10/2022 Edema (Acute) Low back pain with sciatica (Acute) 04/2021, right 2005 discectomy, l5-S1 06/2021-L5-S1, microdiscectomy low back surgery at [facility] Essential hypertension (Acute) Personal history of nicotine dependence (Acute) 03/2021-cigar smoker-1 cigar a day Hyperlipidemia (Acute) Carpal tunnel syndrome of left wrist (Acute) Excessive drinking alcohol (Chronic) 03/2021-3-4 drinks a day Medical History Blood in stool Chronic pain Surgical History Colonoscopy - MAC (01/28/17) S/P diskectomy L5-S1 : 11/27/04 and 06/2021 Family History (Updated 01/14/23 @ 13:32 by Renee Curran) Father Alcohol abuse Mother , 76 Cancer Sister No problems noted. Sister No problems noted. Maternal Grandmother , 93 Diabetes Social History (Updated 01/22/25 @ 10:39 by Louann Rodriguez) Smoking/Tobacco Use Status: Current-Occasional Tobacco Type: cigars Tobacco: How many years used: 6 Quit status: considering quitting Second Hand Exposure: Yes Smoking risk assessment performed?: Yes Alcohol Intake: current Alcohol Intake frequency: a few times a week Alcohol type: beer Drug use: Occasionally Substance use type: marijuana Adopted: No Caregiver/Support person: No Household members: spouse Housing: house Number of Children: 1 number of grandchildren: 2 Communication Needs: None Education Level: high school Do you need help understanding health information?: Rarely 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[employer] Pets and animals: Yes Pets and animals: dog(s) Do you think of yourself as: straight/heterosexual Current gender identity: male What is your relationship status?: How often do you talk on the phone with friends or family?: once per week How often do you get together with friends or relatives?: decline to answer How often do you attend amish or buddhism services?: decline to answer Do you belong to any clubs or organized social groups?: no Panel score (0-1 are the most socially isolated patients): 1 Duration: 15-30 minutes/day Frequency: 3-4 times per week Mimi/Druze: No preference Special mimi needs: No Seatbelt use: always Drive intox or ride w/intox 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: No Working smoke detector in home: Yes Carbon monox detector in home: Yes Firearms in home: No Do you feel safe at home: Yes Do you feel safe in your relationship?: Yes Victim of physical abuse: No Victim of emotional abuse: No Victim of sexual abuse: No Would you like helpful sources: No PAWSS Have you Been Recently Intoxicated or Drunk Within the Last 30 days?: No Have you Ever Experienced Previous Episodes of Alcohol Withdrawal?: No Have you ever Experienced Withdrawal Seizures?: No Have you ever Experienced Delirium Tremens(DT)s?: No Have you ever undergone Alcohol Rehabilitation Treatment (i.e, inpt ot outpatient treatment programs)?: No Have you ever Experienced Blackouts?: No Have you ever Combined Alcohol with other Downers within the last 90 days?: No Have you ever Combined Alcohol with any other Substance of Abuse during the last 90 days?: No Positive Blood Alcohol level on Presentation? [PCS.BAL]: No Evidence of Increased Autonomic Activity (i.e. HR>120, tremor, sweating, agitation, nausea)?: No Result: 0
[2025-04-08] MEDS: Aspirin 81 MG CHEW 324 MG CH (11:46)
[2025-04-08 11:50] LABS: Abs Immature Grans 0.01 10^3/uL (0.0-0.06); HCT 40.2 % (40.0-50.0); HGB 14.1 g/dL (13.5-17.5); Immature Grans % 0.2 %; MCH 34.0 pg (27.0-33.0); MCHC 35.1 % (32.0-36.0); MCV 97 fL (80-95); MPV 8.4 fL (8.0-11.0); Platelet Count 221 10^3/uL (130-400); RBC 4.15 10^6/uL (4.36-5.78); RDW 11.4 % (11.8-14.1); RDW-SD 40.5 fL; WBC 5.42 10^3/uL (4.4-10.8)
[2025-04-08 12:11] LABS: Magnesium 2.0 mg/dL (1.8-2.4)
[2025-04-08 12:20] LABS: ALT 48 U/L (16-63); AST 22 U/L (15-37); Albumin 4.1 g/dL (3.4-5.0); Alkaline Phosphatase 51 U/L (46-116); Anion Gap 9.1 mmol/L (3-11); BUN 8 mg/dL (7-18); Bilirubin, Total 0.4 mg/dL (0.2-1.0); CO2 27.9 mmol/L (21.0-32.0); Calcium 9.0 mg/dL (8.5-10.1); Chloride 100 mmol/L (98-107); Glucose 94 mg/dL (74-106); Lipase 38 U/L (<78); Potassium 3.9 mmol/L (3.5-5.1); Sodium 137 mmol/L (136-145); Total Protein 7.5 g/dL (6.4-8.2); Troponin I < 4 ng/L (<or=76)
[2025-04-08 12:53] LABS: Troponin I 4 ng/L (<or=76)
--- NOTE | 2025-04-08 14:38 | W.PM.HP.N ---
Date of service: 04/08/25 Time of Service: 14:00 Assessment and Plan Assessment and plan (1) Syncope: Status: Chronic Assessment and plan: Syncope with partial LOC, no injury Workup largely unremarkable Will admit to observation, monitor on telemetry overnight and get echocardiogram Checking viral panel Checking for pernicious anemia Laura score zero for inpatient VTE risk. No VTE chemoprophylaxis at this time. (2) Benign essential hypertension: Status: Acute Assessment and plan: Continue home amlodipine, lisinopril (3) Macrocytosis without anemia: Status: Acute Assessment and plan: Elevated MCV without low hemoglobin Checking B12 and folate History of Present Illness History of Present Illness Chief Complaint: palpitations and syncope Narrative: Ryan Causey is a 60 year old man presenting April 08 after having an episode at work, early this morning, with a racing heart rate, followed by passing out. He reports that he felt very warm during and after the episode. He continued to work but since he was feeling lightheaded and dizzy he came to the ED. 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 He reports that his upper abdomen/lower chest had a fluttering sensation, nothing like a belch or heartburn. He felt his vision become a small cherokee and fade out. He grabbed hold of a machine and was able to hang on, and he recalls rousing pretty quickly. He has no sick contacts. He had breakfast and has been eating normally. No chest pain, no SOB, no abdominal pain, no N/V/diarrhea. In the ED he was hypertensive 171/94. Vitals otherwise unremarkable. EKG unremarkable. CXR unremarkable. CBC with MCV elevation but no anemia, suggestive of B12 or folate deficiency. Metabolic panel unremarkable. Troponins negative. He was given aspirin. PMH includes HTN, tobacco and EtOH. He has annual PCP wellness visits which appear to be uneventful other than BP monitoring. PFSH All Active Problems Macrocytosis without anemia (Acute) Benign essential hypertension (Acute) Palpitations (Acute) Syncope (Chronic) Numbness of right foot (Acute) Lateral epicondylitis, left elbow (Acute) Steroid Injection: 03/10/2022 Edema (Acute) Low back pain with sciatica (Acute) 04/2021, right 2005 discectomy, l5-S1 06/2021-L5-S1, microdiscectomy low back surgery at [facility] Essential hypertension (Acute) Personal history of nicotine dependence (Acute) 03/2021-cigar smoker-1 cigar a day Hyperlipidemia (Acute) Carpal tunnel syndrome of left wrist (Acute) Excessive drinking alcohol (Chronic) 03/2021-3-4 drinks a day Medical History Blood in stool Chronic pain Surgical History Colonoscopy - MAC (01/28/17) S/P diskectomy L5-S1 : 11/27/04 and 06/2021 Family History (Updated 01/14/23 @ 13:32 by Renee Curran) Father Alcohol abuse Mother , 76 Cancer Sister No problems noted. Sister No problems noted. Maternal Grandmother , 93 Diabetes Social History (Updated 01/22/25 @ 10:39 by Louann Rodriguez) Smoking/Tobacco Use Status: Current-Occasional Tobacco Type: cigars Tobacco: How many years used: 6 Quit status: considering quitting Second Hand Exposure: Yes Smoking risk assessment performed?: Yes Alcohol Intake: current Alcohol Intake frequency: a few times a week Alcohol type: beer Drug use: Occasionally Substance use type: marijuana Adopted: No Caregiver/Support person: No Household members: spouse Housing: house Number of Children: 1 number of grandchildren: 2 Communication Needs: None Education Level: high school Do you need help understanding health information?: Rarely 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[employer] Pets and animals: Yes Pets and animals: dog(s) Do you think of yourself as: straight/heterosexual Current gender identity: male What is your relationship status?: How often do you talk on the phone with friends or family?: once per week How often do you get together with friends or relatives?: decline to answer How often do you attend baptist or sikhism services?: decline to answer Do you belong to any clubs or organized social groups?: no Panel score (0-1 are the most socially isolated patients): 1 Duration: 15-30 minutes/day Frequency: 3-4 times per week Mimi/Yazdanism: No preference Special mimi needs: No Seatbelt use: always Drive intox or ride w/intox emergency medical technician/driver: No Working smoke detector in home: Yes Carbon monox detector in home: Yes Firearms in home: No Do you feel safe at home: Yes Do you feel safe in your relationship?: Yes Victim of physical abuse: No Victim of emotional abuse: No Victim of sexual abuse: No Would you like helpful sources: No Meds Allergies and Home Medications Allergies Allergy/AdvReac Type Severity Reaction Status Date / Time No Known Allergies Allergy Verified 04/08/25 11:25 Home Medications Medication Instructions Recorded Confirmed Type ibuprofen 200 mg tablet (Advil) 400 - 600,600 mg PO BID 04/06/18 04/08/25 History acetaminophen 500 mg tablet 1,000 mg PO PRN PRN 07/04/21 04/08/25 History amlodipine 5 mg tablet 5 mg PO DAILY #90 tabs 01/17/25 04/08/25 Rx lisinopril 40 mg tablet 40 mg PO DAILY #90 tabs 01/17/25 04/08/25 Rx simvastatin 10 mg tablet 10 mg PO DAILY #90 tabs 01/17/25 04/08/25 Rx Exam Narrative Exam Narrative: General: This is a pleasant man in no distress HEENT: Normocephalic, atraumatic CV: RRR Resp: CTAB Abd: soft, NTND MSK: voluntary motion x4 Neuro: awake, alert, no focal deficits Results Labs 04/08/25 11:41 04/08/25 11:41 Labs: Laboratory Results - last 24 hr 04/08/25 04/08/25 11:41 12:20 WBC 5.42 RBC 4.15 L Hgb 14.1 Hct 40.2 MCV 97 H MCH 34.0 H MCHC 35.1 RDW 11.4 L Plt Count 221 MPV 8.4 Immature Gran % 0.2 Neutrophils % 51.4 Lymphocytes % 38.9 Monocytes % 7.6 Eosinophils % 1.3 Basophils % 0.6 Nucleated RBC % 0.0 Absolute Neutrophils 2.79 Absolute Lymphocytes 2.11 Absolute Monocytes 0.41 Absolute Eosinophils 0.07 Absolute Basophils 0.03 Sodium 137 Potassium 3.9 Chloride 100 Carbon Dioxide 27.9 Anion Gap 9.1 BUN 8 Creatinine 0.7 Est GFR (CKD-EPI 2020) 106.14 Glucose 94 Calcium 9.0 Magnesium 2.0 Total Bilirubin 0.4 AST 22 ALT 48 Alkaline Phosphatase 51 Troponin I < 4 4 Total Protein 7.5 Albumin 4.1 Lipase 38 Last Vital Signs Temp 36.8 C 04/08/25 11:08 Pulse 87 04/08/25 14:31 Resp 22 04/08/25 14:31 BP 157/96 H 04/08/25 14:31 Pulse Ox 98 04/08/25 14:31 PAWSS Have you Been Recently Intoxicated or Drunk Within the Last 30 days?: No Have you Ever Experienced Previous Episodes of Alcohol Withdrawal?: No Have you ever Experienced Withdrawal Seizures?: No Have you ever Experienced Delirium Tremens(DT)s?: No Have you ever undergone Alcohol Rehabilitation Treatment (i.e, inpt ot outpatient treatment programs)?: No Have you ever Experienced Blackouts?: No Have you ever Combined Alcohol with other Downers within the last 90 days?: No Have you ever Combined Alcohol with any other Substance of Abuse during the last 90 days?: No Positive Blood Alcohol level on Presentation? [PCS.BAL]: No Evidence of Increased Autonomic Activity (i.e. HR>120, tremor, sweating, agitation, nausea)?: No Result: 0 Time Spent Time spent with Patient: 40-54 minutes Time was spent: preparing to see the patient(eg.review tests), obtaining and/or reviewing separately otained hiistory, ordering medications,tests, procedures, referring, communicating with other health resident care director, indepentently interpreting results, counseling the patient and care coordination
--- NOTE | 2025-04-08 17:57 | W.PC.ACHO ---
Registration Status: ADM JUSTIN Primary Language: Preferred Language: Afghan ED Information & Data Chief Complaint Canelo 04/08/25 11:35 Triage Note Patient state while at work 04/08/25 11:08 this morning at about 7:00 am he felt a fluttering sensation in his chest and then he had to catch his breath and then he got whoppy and his eyes went dark. he has not felt normal since. he got a hot flash when the incident happen but he continue working but since then he has been getting lightheaded and dizziness Medical / Surgical History (Last Reviewed 02/07/22 @ 11:10 by CIRO Mcgarry) Chronic pain Blood in stool (Last Reviewed 02/07/22 @ 11:10 by CIRO Mcgarry) S/P diskectomy Colonoscopy - MAC (01/28/17) Most Recent Vital Signs Temperature 36.8 C 04/08/25 11:08 Temperature Source Oral 04/08/25 11:08 Pulse 77 04/08/25 15:50 Pulse Rhythm Regular 04/08/25 17:13 Pulse 80 04/08/25 15:50 Respiratory Rate 15 04/08/25 15:50 Respiratory Effort Normal 04/08/25 17:13 Respiratory Depth Normal 04/08/25 17:13 Respiratory Pattern Normal 04/08/25 17:13 Blood Pressure 188/97 H 04/08/25 15:31 Blood Pressure Mean 129 04/08/25 15:31 Blood Pressure Position Sitting 04/08/25 11:08 Pulse Oximetry 99 04/08/25 15:50 Oxygen Delivery Method Room Air 04/08/25 11:08 Oxygen Flow Rate 0 04/08/25 11:08 Allergies No Known Allergies Allergy (Verified 04/08/25 11:25) IV IV Catheter Type [Right Saline Lock Antecubital] IV Catheter Gauge [Right 18 Antecubital] Diet Orders Category Date Time Status Heart Healthy Eating [DIET] Nutrition 04/08/25 Dinner Active Diagnostics 04/08/25 04/08/25 Range/Units 12:20 11:41 WBC 5.42 (4.4-10.8) 10^3/uL RBC 4.15 L (4.36-5.78) 10^6/uL Hgb 14.1 (13.5-17.5) g/dL Hct 40.2 (40.0-50.0) % MCV 97 H (80-95) fL MCH 34.0 H (27.0-33.0) pg MCHC 35.1 (32.0-36.0) % RDW 11.4 L (11.8-14.1) % Plt Count 221 (130-400) 10^3/uL MPV 8.4 (8.0-11.0) fL Immature Gran % 0.2 % Neutrophils % 51.4 % Lymphocytes % 38.9 % Monocytes % 7.6 % Eosinophils % 1.3 % Basophils % 0.6 % Nucleated RBC % 0.0 (0.0-0.3) % Absolute Neutrophils 2.79 (1.2-6.7) 10^3/uL Absolute Lymphocytes 2.11 (1.2-3.4) 10^3/uL Absolute Monocytes 0.41 (0.1-0.8) 10^3/uL Absolute Eosinophils 0.07 (0.0-0.7) 10^3/uL Absolute Basophils 0.03 (0.0-0.2) 10^3/uL Sodium 137 (136-145) mmol/L Potassium 3.9 (3.5-5.1) mmol/L Chloride 100 (98-107) mmol/L Carbon Dioxide 27.9 (21.0-32.0) mmol/L Anion Gap 9.1 (3-11) mmol/L BUN 8 (7-18) mg/dL Creatinine 0.7 (0.70-1.30) mg/dL Est GFR (CKD-EPI 2020) 106.14 (mL/min/1.73m2) Glucose 94 (74-106) mg/dL Calcium 9.0 (8.5-10.1) mg/dL Magnesium 2.0 (1.8-2.4) mg/dL Total Bilirubin 0.4 (0.2-1.0) mg/dL AST 22 (15-37) U/L ALT 48 (16-63) U/L Alkaline Phosphatase 51 (46-116) U/L Troponin I 4 < 4 (<or=76) ng/L Total Protein 7.5 (6.4-8.2) g/dL Albumin 4.1 (3.4-5.0) g/dL Lipase 38 (<78) U/L [id number] Documentation Fingerstick Glucose Start: 04/08/25 11:18 Freq: Status: Active Protocol: Activity Type Activity Date Activity User E-sign Co-sign Detail Recorded Client Recorded Date Recorded By Document 04/08/25 11:17 BKG DAEMON(3) [id number] 04/08/25 11:18 BKG DAEMON(4) Intake and Output - 24 Hour Total 04/08/25 11:06 thru 04/08/25 17:13 Intake Total 10 Balance 10 Weight 79.379 kg Intake: IV 10 Other: Urine Appearance Clear Falls Risk Assessment History of Falls No History 04/08/25 17:13 Contributing Factors No Factors 04/08/25 17:13 Ambulatory Aids Independent 04/08/25 17:13 Tubes/Lines W/no contributing factors 04/08/25 11:51 Gait Evaluation No gait disturbance 04/08/25 17:13 Cognition No cognitive impairment 04/08/25 17:13 Fall Total Score 0 04/08/25 17:13 Level of Risk Standard/Low Risk 04/08/25 17:13 Attestation Statement: By documenting the first initial, last name, and credentials of the reporting nurse below, both parties acknowledge that all relevant information regarding the patient handoff has been communicated, and that all questions have been addressed to ensure continuity and safety of care. Additional Patient Information/Comments: Pt arrived to the unit @1630. Report Received From: Latasha @ [id number]
[2025-04-08 19:35] LABS: COVID-19 PCR Negative (Negative); RSV PCR Negative (Negative)
[2025-04-08] MEDS: Simvastatin 10 MG TAB PO (21:13)
[2025-04-08] MEDS: Lisinopril 10 MG TAB 40 MG PO (21:14)
[2025-04-08] MEDS: amLODIPine 5 MG TAB PO (21:14)
--- NOTE | 2025-04-09 | DI.US_ITS ---
APPROVED REPORT EXAM: Comprehensive 2D, Doppler, and color-flow Echocardiogram Patient Location: In-Patient Escort Blind: Ratna Quigley RT (R) (CT) [facility] [[email or web address]] Rhythm: NSR Indications: Palpitations. Other Information Study Quality: Good Conclusion Normal left ventricular wall thickness and chamber size. Ejection fraction is 70%. Diastolic function is normal for age. There are no segmental wall motion abnormalities Normal right ventricular size and function Both atria are normal in size There is no significant valvular disease Wall motion Left Ventricle The left ventricle is normal size. The left ventricular systolic function is normal. The left ventricular ejection fraction is within the normal range. There is normal left ventricular wall thickness. There is normal LV segmental wall motion. Grade I diastolic dysfunction. There is no ventricular septal defect visualized. LVEF is 70%. Right Ventricle The right ventricle is normal size. The right ventricular systolic function is normal. There is normal right ventricular wall thickness. Atria The left atrium size is normal. The right atrium size is normal. The interatrial septum is intact with no evidence for an atrial septal defect. Aortic Valve Aortic valve is trileaflet. Aortic valve leaflets are mildly thickened. There is no aortic valvular stenosis. Trace aortic regurgitation. Mitral Valve The mitral valve is normal in structure. No evidence of mitral valve stenosis. Trace mitral regurgitation. Tricuspid Valve The tricuspid valve is normal in structure. There is no tricuspid valve stenosis. Trace tricuspid regurgitation. Pulmonic Valve The pulmonary valve is normal in structure. There is no pulmonic valvular stenosis. Trace pulmonic regurgitation. Great Vessels The aortic root is normal in size. The pulmonary artery is normal. The ascending aorta is normal in size. IVC is normal in size and collapses >50% with inspiration. Pericardium There is no pericardial effusion. There is no pleural effusion.
[2025-04-09 02:29] VITALS: BP 145/90; PULSE 67; RESP 16; TEMP 36.6; O2SAT 98
[2025-04-09 07:10] VITALS: BP 136/92; PULSE 67; RESP 16; TEMP 36.8; O2SAT 96
[2025-04-09 07:46] LABS: Vitamin B12 220 pg/mL (193-986)
[2025-04-09 07:56] LABS: Folate > 20.0 ng/mL (8.6-20.0)
--- NOTE | 2025-04-09 10:21 | INITIAL_ITS ---
Date of service: 04/09/25 Time of Service: 10:21 Care Management Initial Assmt Initial Assessment Reason for Hospitalization: syncope, palpitations Functional Status/Living Situation Patient Presentation: Ed presented to the ER yesterday morning with c/o a syncopal episode at work, with palpitations just prior. He stated that he was dizzy and sweaty after the episode. He stated his heart was racing with a fluttering sensation. He did not fall to the ground, was able to hold on to some equipment, and he stated he came out of it pretty quickly. That said, it was scary enough that he felt he required a work up. Ed and his Tika were very pleasant with CM when we met earlier today. Ed had an echocardiogram earlier today, which was normal, and no cause was found for Ed's symptoms. Ed stated that he would like to go home, and was discharged by his provider with instructions to follow up with his PCP. 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: N 06/08/13, 16:18 Date Asked 02/05/25 02/05/25, 11:02 AD Date Reviewed COLST On File at [facility] COLST Date Scanned Code Status Resuscitation Status Full Code Insurance Coverage/Financial Issues [facility]: [facility] Care Team Visit Care Team Role Provider Type Surinder Craig NP Primary Care Provider NURSE PRACTITIONER CIRO Chavez Emergency Provider [employer] BEADING MACHINE TENDER Owen Braun MD Admit Provider [facility] STAFF PHYSICIAN Attending Provider Discharge Potential Discharge Needs: PCP F/U Appt Anticipated Barriers to Discharge: None Identified Patient/Family Education Needs: Review discharge instructions, discuss Ask Me Three Transportation: Private vehicle Plan: Ed was discharged home earlier today. He will f/u with his PCP and continue per his plan of care. Ed was given a return to work note. Ed was transported home by his . Social Determinants of Health Screening Social Determinants of health last assessed in clinic: 04/09/25 Will the Patient Participate in the Screening?: Yes Do you worry about having a steady place to live?: no Problems where you live: no known problems In the past 12 months, have you had to go without electric, gas, oil or water in your home?: no 1. Within the past 12 months, we worried whether our food would run out before we got money to buy more.: Don't know/refused 2. Within the past 12 months, the food we bought just didn't last and we didn't have money to get more.: Don't know/refused Has lack of transportation kept you from medical appointments or from doing things needed for daily living?: no Has anyone in your life made you feel unsafe or unsupported?: no How hard is it for you to pay for the very basics like food, housing, medical care, and heating? Would you say it is:: Not hard at all Do you want help finding or keeping work or a job?: I do not need or want help If for any reason you need help with day-to-day activities such as bathing, preparing meals, shopping, managing finances, etc., do you get the help you need?: I don’t need any help How often do you feel lonely or isolated from those around you?: Never Do you speak a language other than Hebrew at home?: No PFSH All Active Problems Macrocytosis without anemia (Acute) Benign essential hypertension (Acute) Palpitations (Acute) Syncope (Chronic) Numbness of right foot (Acute) Lateral epicondylitis, left elbow (Acute) Steroid Injection: 03/10/2022 Edema (Acute) Low back pain with sciatica (Acute) 04/2021, right 2005 discectomy, l5-S1 06/2021-L5-S1, microdiscectomy low back surgery at [facility] Essential hypertension (Acute) Personal history of nicotine dependence (Acute) 03/2021-cigar smoker-1 cigar a day Hyperlipidemia (Acute) Carpal tunnel syndrome of left wrist (Acute) Excessive drinking alcohol (Chronic) 03/2021-3-4 drinks a day Medical History Blood in stool Chronic pain Surgical History Colonoscopy - MAC (01/28/17) S/P diskectomy L5-S1 : 11/27/04 and 06/2021 Family History (Updated 01/14/23 @ 13:32 by Renee Curran) Father Alcohol abuse Mother , 76 Cancer Sister No problems noted. Sister No problems noted. Maternal Grandmother , 93 Diabetes Social History (Updated 01/22/25 @ 10:39 by Louann Rodriguez) Smoking/Tobacco Use Status: Current-Occasional Tobacco Type: cigars Tobacco: How many years used: 6 Quit status: considering quitting Second Hand Exposure: Yes Smoking risk assessment performed?: Yes Alcohol Intake: current Alcohol Intake frequency: a few times a week Alcohol type: beer Drug use: Occasionally Substance use type: marijuana Adopted: No Caregiver/Support person: No Household members: spouse Housing: house Number of Children: 1 number of grandchildren: 2 Communication Needs: None Education Level: high school Do you need help understanding health information?: Rarely 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[employer] Pets and animals: Yes Pets and animals: dog(s) Do you think of yourself as: straight/heterosexual Current gender identity: male What is your relationship status?: How often do you talk on the phone with friends or family?: once per week How often do you get together with friends or relatives?: decline to answer How often do you attend mandaeism or scientologist services?: decline to answer Do you belong to any clubs or organized social groups?: no Panel score (0-1 are the most socially isolated patients): 1 Duration: 15-30 minutes/day Frequency: 3-4 times per week Mimi/Congregational: No preference Special mimi needs: No Seatbelt use: always Drive intox or ride w/intox newspaper delivery driver: No Working smoke detector in home: Yes Carbon monox detector in home: Yes Firearms in home: No Do you feel safe at home: Yes Do you feel safe in your relationship?: Yes Victim of physical abuse: No Victim of emotional abuse: No Victim of sexual abuse: No Would you like helpful sources: No
[2025-04-09 11:19] VITALS: BP 126/88; PULSE 77; RESP 16; TEMP 36.9; O2SAT 96
--- NOTE | 2025-04-09 12:44 | PHA.REVIEW2 ---
Pharmacy Admission Review Admission Clinical Review Admission Pharmacy Review: Macrocytosis without anemia (Acute) Benign essential hypertension (Acute) No Known Allergies Allergy (Verified 04/08/25 11:25) Resuscitation Status Full Code Height 5 ft 8 in Weight 79.379 kg Pharmacy Admission Review Renal Dosing Renal Dosing: BUN 8 mg/dL (7-18) 04/08/25 11:41 Creatinine 0.7 mg/dL (0.70-1.30) 04/08/25 11:41 Medications needing adjustments: Reviewed (CrCl 127.57 mL/min) List of meds needing interventions: Current medications are okay Anticoagulation Anticoagulation: Hgb 14.1 g/dL (13.5-17.5) 04/08/25 11:41 Hct 40.2 % (40.0-50.0) 04/08/25 11:41 Plt Count 221 10^3/uL (130-400) 04/08/25 11:41 Creatinine 0.7 mg/dL (0.70-1.30) 04/08/25 11:41 DVT Prophylaxis: Reviewed (Per H+P patient low risk) Relevant Labs Relevant Labs: Sodium 137 mmol/L (136-145) 04/08/25 11:41 Potassium 3.9 mmol/L (3.5-5.1) 04/08/25 11:41 Chloride 100 mmol/L (98-107) 04/08/25 11:41 Magnesium 2.0 mg/dL (1.8-2.4) 04/08/25 11:41 Electrolytes, C-Reactive P, ESR: Reviewed (No new labs for today) Cardiac Review Cardiac Review: Troponin I 4 ng/L (<or=76) 04/08/25 12:20 Blood Pressure 126/88 1119 Blood Pressure 136/92 0710 Blood Pressure 145/90 0229 BP, HR, EF%: Reviewed (HR WNL) List meds needing interventions: Has orders for amlodipine 5mg daily and lisinopril 40mg daily QTc Review QTc: Reviewed (416 from 04/08/25) IV to PO Switch IV Medications: Reviewed Home Meds Home Med List reviewed: Reviewed Relevent Home Meds Not ordered & why?: ibuprofen (PRN) Current Meds Current Medication Order Review: Reviewed
--- NOTE | 2025-04-09 14:12 | W.PM.DS.N ---
Date of service: 04/09/25 Time of Service: 08:00 DS: Diagnosis Discharge Diagnosis (1) Syncope: Status: Resolved Asessment and Plan: Ryan Causey is a 60 year old man presenting April 08 after an episode of palpitations followed by passing out. ED evaluation was negative for metabolic or acute cardiac causes. He was admitted for cardiac monitoring observation. Echocardiogram did not reveal deficits. No events on telemetry. Lengthy discussion at bedside with patient and his about inconclusive diagnostic workup; they will return home and consult PCP for continuing workup of chronic concerns including MARY GRACE and hypoglycemia. At this time the patient is safe to return home with his for PCP followup. (2) Benign essential hypertension: Status: Acute (3) Macrocytosis without anemia: Status: Acute Discharge Plan Disposition Patient Disposition: Home Condition: Fair Discharge Details Reason For Visit: Palpitations Admit Date/Time: 04/08/25 14:32 Admit Provider: Owen Braun Attending Provider: Owen Braun Primary Care Provider: Surinder Craig Hospital Course Hospital Course: Ryan Causey is a 60 year old man presenting April 08 after an episode of palpitations followed by passing out. ED evaluation was negative for metabolic or acute cardiac causes. He was admitted for cardiac monitoring observation. Echocardiogram did not reveal deficits. No events on telemetry. Lengthy discussion at bedside with patient and his about inconclusive diagnostic workup; they will return home and consult PCP for continuing workup of chronic concerns including MARY GRACE and hypoglycemia. At this time the patient is safe to return home with his for PCP followup. Home Meds and New Rx's Prescriptions: Continued amlodipine 5 mg tablet 5 mg PO DAILY Qty: 90 3RF lisinopril 40 mg tablet 40 mg PO DAILY Qty: 90 3RF simvastatin 10 mg tablet 10 mg PO DAILY Qty: 90 3RF Discontinued ibuprofen [Advil] 200 mg tablet 400 - 600,600 mg PO BID acetaminophen 500 mg Tablet 1,000 mg PO PRN PRN Discharge Instructions Instructions: Syncope (Fainting) (DC) Stand Alone Forms: Portal Information Referrals: Surinder Craig LPN RN HOSPICE [Primary Care Provider, Medicine] Referral Note: Your pcp will reach out for a follow up appointment, if you do not hear from them, please reach out. Activity:: Activity as Tolerated Equipment/Supplies:: No Equipment Needed Diet:: As Tolerated Discharge Orders Discharge Orders: Discharge Order (Routine); Ordered 04/09/25 Ordered By: Owen Braun Discharge Data Discharge Date/Time-TO BE ENTERED AT DEPARTURE: 04/09/25 15:02 DS: Summary Time Spent with Patient providing and/or coordinating discharge services: Greater than 30 minutes Status at Discharge Functional status at discharge: independent ambulation Overall status at discharge: patient is back to baseline Mental Status: mental status grossly normal Speech and Movement: speech and movement normal Mood: congruent mood Affect: normal affect Exam Narrative Exam Narrative: General: This is a pleasant man in no distress HEENT: Normocephalic, atraumatic CV: RRR Resp: CTAB Abd: soft, NTND MSK: voluntary motion x4 Neuro: awake, alert, no focal deficits Psych Mental Status: mental status grossly normal Speech and Movement: speech and movement normal Mood: congruent mood Affect: normal affect DS: Data Vitals/I&O Vitals and I&O: Vital Signs Temperature 36.9 C 04/09/25 11:19 Temperature Source Temporal Artery Scan 04/09/25 11:19 Pulse 77 04/09/25 11:19 Pulse Rhythm Regular 04/08/25 17:13 Pulse 80 04/08/25 15:50 Respiratory Rate 16 04/09/25 11:19 Respiratory Effort Normal 04/08/25 17:13 Respiratory Depth Normal 04/08/25 17:13 Respiratory Pattern Normal 04/08/25 17:13 Blood Pressure 126/88 04/09/25 11:19 Blood Pressure Mean 100 04/09/25 11:19 Blood Pressure Position Sitting 04/08/25 11:08 Pulse Oximetry 96 04/09/25 11:19 Oxygen Delivery Method Room Air 04/09/25 11:19 Oxygen Flow Rate 0 04/09/25 11:19 Pain Level 0 04/09/25 12:53 Intake & Output 04/08/25 04/09/25 04/09/25 23:59 11:59 23:59 Intake Total 480 / 600 120 / 600 Output Total 100 / 100 Balance 380 / 500 120 / 500 Intake: Oral 480 / 600 120 / 600 Output: Urine 100 / 100 Other: Urine Color Yellow Yellow Urine Appearance Clear Clear Urine Odor None Comment pt voided x1 Data Completed and Pending Pending Labs at Discharge: 04/08/25 04/08/25 04/08/25 11:41 12:20 18:12 WBC 5.42 RBC 4.15 L Hgb 14.1 Hct 40.2 MCV 97 H MCH 34.0 H MCHC 35.1 RDW 11.4 L Plt Count 221 MPV 8.4 Immature Gran % 0.2 Neutrophils % 51.4 Lymphocytes % 38.9 Monocytes % 7.6 Eosinophils % 1.3 Basophils % 0.6 Nucleated RBC % 0.0 Absolute Neutrophils 2.79 Absolute Lymphocytes 2.11 Absolute Monocytes 0.41 Absolute Eosinophils 0.07 Absolute Basophils 0.03 Sodium 137 Potassium 3.9 Chloride 100 Carbon Dioxide 27.9 Anion Gap 9.1 BUN 8 Creatinine 0.7 Est GFR (CKD-EPI 2020) 106.14 Glucose 94 Calcium 9.0 Magnesium 2.0 Total Bilirubin 0.4 AST 22 ALT 48 Alkaline Phosphatase 51 Troponin I < 4 4 Total Protein 7.5 Albumin 4.1 Lipase 38 Vitamin B12 Folate COVID-19 Source Nasopharynx SARS-CoV-2 (PCR) Negative Influenza Type A (PCR) Negative Influenza Type B (PCR) Negative RSV (PCR) Negative 04/09/25 06:04 WBC RBC Hgb Hct MCV MCH MCHC RDW Plt Count MPV Immature Gran % Neutrophils % Lymphocytes % Monocytes % Eosinophils % Basophils % Nucleated RBC % Absolute Neutrophils Absolute Lymphocytes Absolute Monocytes Absolute Eosinophils Absolute Basophils Sodium Potassium Chloride Carbon Dioxide Anion Gap BUN Creatinine Est GFR (CKD-EPI 2020) Glucose Calcium Magnesium Total Bilirubin AST ALT Alkaline Phosphatase Troponin I Total Protein Albumin Lipase Vitamin B12 220 Folate > 20.0 H COVID-19 Source SARS-CoV-2 (PCR) Influenza Type A (PCR) Influenza Type B (PCR) RSV (PCR) PFSH All Active Problems Macrocytosis without anemia (Acute) Benign essential hypertension (Acute) Palpitations (Acute) Numbness of right foot (Acute) Lateral epicondylitis, left elbow (Acute) Steroid Injection: 03/10/2022 Edema (Acute) Low back pain with sciatica (Acute) 04/2021, right 2005 discectomy, l5-S1 06/2021-L5-S1, microdiscectomy low back surgery at [facility] Essential hypertension (Acute) Personal history of nicotine dependence (Acute) 03/2021-cigar smoker-1 cigar a day Hyperlipidemia (Acute) Carpal tunnel syndrome of left wrist (Acute) Excessive drinking alcohol (Chronic) 03/2021-3-4 drinks a day Medical History Blood in stool Chronic pain Surgical History Colonoscopy - MAC (01/28/17) S/P diskectomy L5-S1 : 11/27/04 and 06/2021 Family History (Updated 01/14/23 @ 13:32 by Renee Curran) Father Alcohol abuse Mother , 76 Cancer Sister No problems noted. Sister No problems noted. Maternal Grandmother , 93 Diabetes Social History (Updated 01/22/25 @ 10:39 by Louann Rodriguez) Smoking/Tobacco Use Status: Current-Occasional Tobacco Type: cigars Tobacco: How many years used: 6 Quit status: considering quitting Second Hand Exposure: Yes Smoking risk assessment performed?: Yes Alcohol Intake: current Alcohol Intake frequency: a few times a week Alcohol type: beer Drug use: Occasionally Substance use type: marijuana Adopted: No Caregiver/Support person: No Household members: spouse Housing: house Number of Children: 1 number of grandchildren: 2 Communication Needs: None Education Level: high school Do you need help understanding health information?: Rarely current occupation: [employer] Pets and animals: Yes Pets and animals: dog(s) Do you think of yourself as: straight/heterosexual Current gender identity: male What is your relationship status?: How often do you talk on the phone with friends or family?: once per week How often do you get together with friends or relatives?: decline to answer How often do you attend roman catholic or caodaism services?: decline to answer Do you belong to any clubs or organized social groups?: no Panel score (0-1 are the most socially isolated patients): 1 Duration: 15-30 minutes/day Frequency: 3-4 times per week Mimi/Catholic: No preference Special mimi needs: No Seatbelt use: always Drive intox or ride w/intox cdl company driver: No Working smoke detector in home: Yes Carbon monox detector in home: Yes Firearms in home: No Do you feel safe at home: Yes Do you feel safe in your relationship?: Yes Victim of physical abuse: No Victim of emotional abuse: No Victim of sexual abuse: No Would you like helpful sources: No Time Spent with Patient Time Spent with Patient: <45 minutes Time was spent: preparing to see the patient(eg.review tests), obtaining and/or reviewing separately otained hiistory, ordering medications,tests, procedures, referring, communicating with other health neonatal intensive care unit nurse, indepentently interpreting results, counseling the patient and care coordination
--- NOTE | 2025-04-15 11:57 | NUR.NOTE ---
Nursing Note: Accessed chart to look up referral for cardio clinic [facility]
== END 2025-04-09 15:02 | disposition home or self-care (01) ==
LOC: ER 15:16 → MS 16:32
PROVIDERS: Admitting Provider Family Medicine; Emergency Provider Physician Assistant; PCP Nurse Practitioner Family; Responsible Provider Family Medicine; Visit Provider Family Medicine
DX: R55 Syncope and collapse (principal); I10 Essential (primary) hypertension; D75.89 Other specified diseases of blood and blood-forming organs; R00.2 Palpitations; R60.0 Localized edema; R20.2 Paresthesia of skin; E78.5 Hyperlipidemia, unspecified; F10.90 Alcohol use, unspecified, uncomplicated; F17.290 Nicotine dependence, other tobacco product, uncomplicated
CPT/HCPCS: 00123; 36415; 36416; 80053; 82962; 83690; 87637; 93005; 99285; 71046; 82607; 82746; 83735; 84484; 85025; 93010; 93306; 99222; 99238; G0378